=== PATIENT | female | born 1930 | race Two or more races ===

== ENCOUNTER 2019-01-04 10:15 | Outpatient (CLI) | payer OTHER | END 2019-01-04 10:35 | disposition home or self-care (01) | LOC: TOM 10:15 | DX: M06.9 Rheumatoid arthritis, unspecified (principal); J21.9 Acute bronchiolitis, unspecified; J45.30 Mild persistent asthma, uncomplicated; J84.10 Pulmonary fibrosis, unspecified ==

== ENCOUNTER → 2019-01-12 | Outpatient (CLI) | payer OTHER | END | disposition home or self-care (01) | LOC: NUCLEAR 10:30 | DX: I26.99 Other pulmonary embolism without acute cor pulmonale (principal) | CPT/HCPCS: 78580; A9540 ==